=== PATIENT | female | born 1990 | race American Indian/Alaskan Native ===

== ENCOUNTER 2020-03-30 21:18 | Inpatient (IN) | payer MEDICAID ==
--- NOTE | 2020-03-30 22:36 | PCM.LDHP ---
L&D History of Present Illness - General Date of Service: 03/30/20 Admit Problem/Dx: Admission Diagnosis/Problem Admission Diagnosis/Problem Source of Information: Patient History Limitations: Reports: No Limitations - History of Present Illness Introduction:: 03/30/20 29 yo is here with consistent contractions that started today around 5-6 pm. She has a history of 2 previous sections, both in which she went into labor around 37 weeks with. Today she is 38 1/7 weeks gestation. FHT's have good variability and accelerations. Contractions are every 1-3 min and strong. SVE 2/90/-1. Timing/Duration: Reports: minutes: (1-3) Location, : Reports: Abdomen Quality: Reports: Sharp Severity: Moderate Improves with: Reports: None Worsens with: Reports: None Associated Symptoms: Denies: vaginal bleeding, vaginal fluid - Related Data Allergies/Adverse Reactions: Allergies Allergy/AdvReac Type Severity Reaction Status Date / Time ibuprofen [From Motrin] Allergy Nausea and Verified 03/25/20 12:03 Vomiting Home Medications: Home Meds Pnv No.95/Ferrous Fum/Folic AC [ Vitamin Tablet] 1 tab PO DAILY 03/25/20 [History] busPIRone [Buspar] 1 tab PO TID 03/25/20 [History] hydrOXYzine HCL [hydrOXYzine] 25 mg PO TID PRN 03/25/20 [History] metroNIDAZOLE [Flagyl] 500 mg PO Q12H #14 tab 03/25/20 [Rx] Past Medical History - Past Health History Medical/Surgical History: Denies 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: : 3 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: 2 LMP (Approximate): Social & Family History - Family History Family Medical History: No Pertinent Family History - Tobacco Use Used Tobacco, but Quit: No Second Hand Smoke Exposure: No - Caffeine Use Caffeine Use: Reports: Energy Drinks, Soda - Recreational Drug Use Recreational Drug Use: No H&P Review of Systems - Review of Systems: Review Of Systems: See Below General: Reports: No Symptoms HEENT: Reports: No Symptoms Pulmonary: Reports: No Symptoms Cardiovascular: Reports: No Symptoms Gastrointestinal: Reports: No Symptoms Genitourinary: Reports: No Symptoms Musculoskeletal: Reports: No Symptoms Skin: Reports: No Symptoms Psychiatric: Reports: No Symptoms Neurological: Reports: No Symptoms Hematologic/Lymphatic: Reports: No Symptoms Immunologic: Reports: No Symptoms L&D Exam - Exam Exam: See Below - Vital Signs Vital Signs: Last Vital Signs Temp 36.4 C 03/30/20 21:38 Pulse 89 03/30/20 21:38 Resp 20 03/30/20 21:38 BP 129/97 H 03/30/20 21:38 Pulse Ox 98 03/30/20 21:38 Weight: 65.317 kg - OB Specific Contraction Duration (sec): 40-60 Contraction Frequency (min): 2-3 Contraction Intensity: Moderate Movement: Active Heart Tones: Present Heart Tones per Min: 150 Heart Rate (FHR) Variability: Moderate (6-25 bmp) Presentation: Vertex - Exam General: Alert, Oriented HEENT: PERRLA, Hearing Intact, Mucosa Moist & [place], Nares Patent, Posterior Pharynx Clear, Pupils Equal, Pupils Reactive Neck: Supple, Trachea Midline Lungs: Clear to Auscultation, Normal Respiratory Effort Cardiovascular: Regular Rate, Regular Rhythm GI/Abdominal Exam: Normal Bowel Sounds, Soft, Non-Tender, No Distention, Pelvis Stable Rectal Exam: Normal Exam, Normal Rectal Tone Genitourinary: Normal external exam, Normal bimanual exam, Cervical dilitation, Enlarged uterus. No: Vaginal bleeding Back Exam: Normal Inspection, Full Range of Motion Extremities: Normal Inspection, Normal Range of Motion, Non-Tender, No Pedal Edema, Normal Capillary Refill Skin: Warm, Dry, Intact Neurological: Cranial Nerves Intact, Reflexes Equal Bilateral Psychiatric: Alert, Normal Affect, Normal Mood - Patient Data Lab Results Last 24 hrs: Laboratory Results - last 24 hr 03/30/20 03/30/20 03/30/20 Range/Units 21:30 21:31 21:42 Urine Color Yellow (YELLOW) Urine Appearance Clear (CLEAR) Urine pH 7.0 (5.0-8.0) Ur Specific [place] 1.020 (1.008-1.030) Urine Protein Negative (NEGATIVE) mg/dL Urine Glucose (UA) Negative (NEGATIVE) mg/dL Urine Ketones Negative (NEGATIVE) mg/dL Urine Occult Blood Negative (NEGATIVE) Urine Nitrite Negative (NEGATIVE) Urine Bilirubin Negative (NEGATIVE) Urine Urobilinogen 0.2 (0.2-1.0) EU/dL Ur Leukocyte Esterase Negative (NEGATIVE) Urine RBC Not seen (0-5) Urine WBC Not seen (0-5) Ur Epithelial Cells Few Urine Bacteria Not seen Urine Opiates Screen Negative (NEGATIVE) Ur Oxycodone Screen Negative (NEGATIVE) Urine Methadone Screen Negative (NEGATIVE) Ur Propoxyphene Screen Negative (NEGATIVE) Ur Barbiturates Screen Negative (NEGATIVE) Ur Tricyclics Screen Negative (NEGATIVE) Ur Phencyclidine Scrn Negative (NEGATIVE) Ur Amphetamine Screen Negative (NEGATIVE) U Methamphetamines Scrn Negative (NEGATIVE) Urine MDMA Screen Negative (NEGATIVE) U Benzodiazepines Scrn Negative (NEGATIVE) U Cocaine Metab Screen Negative (NEGATIVE) U Marijuana (THC) Screen Negative (NEGATIVE) SARS CoV-2 RNA Rapid KENZIE Negative - Problem List (1) Term SNOMED Code(s): 71207979 ICD Code: Z34.90 - ENCNTR FOR SUPRVSN OF NORMAL , UNSP, UNSP TRIMESTER Status: Acute Current Visit: Yes (2) History of 2 sections SNOMED Code(s): 561346595 ICD Code: Z98.891 - HISTORY OF UTERINE SCAR FROM PREVIOUS SURGERY Status: Acute Current Visit: Yes Problem List Initiated/Reviewed/Updated: Yes Orders Last 24hrs: Active Orders 24 hr Category Date Time Status OB Check [OM.PC] Click to Edit Care 03/30/20 21:25 Ordered CBC WITH AUTO DIFF [HEME] Routine Lab 03/30/20 22:28 Ordered TYPE AND SCREEN [BBK] Routine Lab 03/30/20 22:28 Ordered Assessment/Plan Comment:: 03/30/20 29 yo at 38 1/7 weeks in early labor Was scheduled for repeat section on 04/08/20, history of 2 previous sections, the first for swollen cervix and the second was repeat Uneventful , no complications SVE Plan: Labs ordered, IV placed Rapid COVID done Surgery called for non-urgent repeat section due to labor
[2020-03-30] MEDS ORDERED: Oxytocin 10 Units/1 ML SDV ONE ×2 (22:44→22:50)
[2020-03-30] MEDS ORDERED: Ondansetron 4 MG/2 ML SDV ONE (22:44)
[2020-03-30] MEDS ORDERED: Phenylephrine 1% 10 MG/ML SDV ONE (22:44)
[2020-03-30] MEDS ORDERED: ePHEDrine 50 MG/ML SDV ONE (22:45)
[2020-03-30] MEDS ORDERED: Sodium Chloride 0.9% 30 ML ONE (22:45)
[2020-03-30] MEDS ORDERED: cefOXitin 2 GM Vial ONE (22:46)
[2020-03-30] MEDS ORDERED: cefOXitin 1 GM Vial ONE (22:50)
[2020-03-31] MEDS ORDERED: diphenhydrAMINE 50 MG/ML SDV ONE (00:18)
[2020-03-31] MEDS ORDERED: diphenhydrAMINE 50 MG/ML SDV IVPUSH PRN (00:39)
[2020-03-31] MEDS ORDERED: Lanolin 100% Cream 40 GM Tube TOP PRN (00:39)
[2020-03-31] MEDS ORDERED: Witch Hazel Medicated Pads 100/Jar TOP PRN (00:39)
[2020-03-31] MEDS ORDERED: Naloxone 0.4 MG/ML SDV IVPUSH PRN ×2 (00:39→00:53)
[2020-03-31] MEDS ORDERED: Ondansetron 4 MG/2 ML SDV IVPUSH PRN ×2 (00:42→00:49)
[2020-03-31] MEDS ORDERED: hydrOXYzine HCL 100 MG/2 ML SDV IM PRN (00:42)
[2020-03-31] MEDS ORDERED: HYDROmorphone/Normal Saline 15 MG/30 ML PCA IV PRN (00:44)
[2020-03-31] MEDS ORDERED: Lactated Ringers 1,000 ML IV SCH (00:45)
[2020-03-31] MEDS ORDERED: Metoclopramide 10 MG/2 ML SDV IVPUSH PRN (00:50)
[2020-03-31] MEDS ORDERED: Labetalol 20 MG/4 ML Syringe IVPUSH PRN (00:51)
[2020-03-31] MEDS ORDERED: Meperidine PF 25 MG/ML Syringe IVPUSH PRN (00:51)
[2020-03-31] MEDS ORDERED: Atropine 0.1 MG/ML 10 ML Syringe IVPUSH PRN (00:54)
[2020-03-31] MEDS ORDERED: Naloxone 0.4 MG/ML SDV IV PRN (01:00)
[2020-03-31] MEDS: Acetaminophen 500 MG Tab PO SCH ×4 (01:27→18:56)
[2020-03-31] MEDS: Metoclopramide 10 MG/2 ML SDV IV SCH ×4 (01:34→18:19)
[2020-03-31] MEDS: cefOXitin 2 GM in Sodium Chloride 0.9% 50 ML IV SCH ×4 (05:27→23:40)
[2020-03-31] MEDS ORDERED: Dextrose 5%-Lactated Ringers 1,000 ML IV SCH ×2 (06:30→08:00)
[2020-03-31] MEDS: Docusate Sodium 100 MG Cap PO SCH ×2 (09:42→20:09)
[2020-03-31] MEDS: Bisacodyl 5 MG Tab PO SCH ×2 (09:43→20:09)
[2020-03-31] MEDS: oxyCODONE 5 MG Tab PO PRN ×3 (11:10→20:09)
[2020-03-31] MEDS ORDERED: Metoclopramide 10 MG/2 ML SDV IV PRN (20:02)
[2020-04-01] MEDS: Acetaminophen 500 MG Tab PO SCH ×4 (00:22→20:44)
[2020-04-01] MEDS: oxyCODONE 5 MG Tab PO PRN ×5 (00:22→21:31)
[2020-04-01] MEDS: cefOXitin 2 GM in Sodium Chloride 0.9% 50 ML IV SCH (05:51)
--- NOTE | 2020-04-01 08:11 | PN ---
DATE OF SERVICE: 04/01/2020 SUBJECTIVE: Mandi is postoperative day 2 following a section. She reports her pain is controlled. Vital signs are stable. Oral intake 2790. Urine output 1150. REVIEW OF SYSTEMS: Remainder of the review of systems negative for any pertinent positives or negatives. OBJECTIVE: GENERAL: Mandi Negro is a pleasant 29-year-old female. She is alert and orientated. Currently holding baby. VITAL SIGNS: TPR 98, 62, 16, and blood pressure 145/93. HEENT: Negative. NECK: Supple. HEART: Regular rate and rhythm. LUNGS: Clear. ABDOMEN: Incision is glued. EXTREMITIES: Without peripheral edema. ASSESSMENT: Term with history of previous section, repeat section, date 03/30/2020. Surgeon: Francisco Javier Ang MD. PLAN: 1. Discontinue and IV fluids. 2. We will evaluate p.r.n. or in the a.m. Diane George PA-C /[id number]
[2020-04-01] MEDS: Bisacodyl 5 MG Tab PO SCH ×2 (08:51→20:44)
[2020-04-01] MEDS: Docusate Sodium 100 MG Cap PO SCH ×2 (08:51→20:44)
[2020-04-02] MEDS: Acetaminophen 500 MG Tab PO SCH ×2 (00:51→08:35)
[2020-04-02] MEDS: oxyCODONE 5 MG Tab PO PRN ×2 (05:03→10:12)
[2020-04-02] MEDS ORDERED: Calcium Carbonate 500 MG Tab.Chew PO PRN (05:26)
[2020-04-02] MEDS: Bisacodyl 5 MG Tab PO SCH (08:36)
[2020-04-02] MEDS: Docusate Sodium 100 MG Cap PO SCH (08:36)
[2020-04-02] MEDS ORDERED: Magnesium Hydroxide 400 MG/5 ML Susp 30 ML Cup PO ONE (09:00)
--- NOTE | 2020-04-02 11:53 | PN ---
DATE OF SERVICE: 03/31/2020 The patient has been afebrile with stable vital signs, status post a section last night. The patient along with the Tylenol. She is allergic to ibuprofen. We will advance to regular diet today. Humphrey catheter will come out and she will be getting some bowel stimulation by switching over to oral pain medication tomorrow. Francisco Javier Ang MD /[id number]
--- NOTE | 2020-04-02 13:05 | DISCH ---
DIAGNOSES: 1. Term , 38 weeks. 2. History of 2 previous sections. DISCHARGE DIAGNOSES: Term with history of previous section, repeat section. Date of procedure, 03/30/2020. Surgeon: Francisco Javier Ang MD. HISTORY: Mandi is a pleasant 29-year-old female who has had 2 prior section. She presented to the hospital at 38 weeks. After preoperative evaluation and discussion of possible risks and possible complications, she wished to proceed with surgical procedure. HOSPITAL COURSE: Mandi had her section with delivery of a viable male on 03/30/2020. She had no operative complications. On postoperative day #1, her IV was decreased. She was started on oral pain medication and regular diet. On postoperative day #2, the cefoxitin was discontinued and IV fluids were discontinued. She was up ambulating. Pain was controlled. Oral intake adequate. Mandi reports being discouraged, problems with baby's father, fussy baby, and the baby is not nursing the way she would like him to. Referral has been made to Er[facility] Project Manager per nursing staff. Mandi is able to be discharged to home without any complications. PHYSICAL EXAMINATION: VITAL SIGNS: Height 5 feet 1 inch, weight is 144 pounds. TPR is 98.3, 81, 18. Blood pressure 146/88. HEENT: Negative. NECK: Supple. HEART: Regular rate and rhythm. LUNGS: Clear. ABDOMEN: Glued incision looks good. EXTREMITIES: Without peripheral edema. DISPOSITION: Discharged to home. CONDITION: Stable and improving. FOLLOWUP: Appointment with Diane George PA-C, on 04/09/2020 at 10 a.m. Appointment will be made with instrumentation engineer per their recommendations. HOME MEDICATIONS: Oxycodone 5 mg p.o. q.6 hours p.r.n. pain, #28; Tylenol 1000 mg q.6 hours, #100; to resume BuSpar 1 tablet p.o. t.i.d. 10 mg; hydroxyzine 25 mg t.i.d. p.r.n.; vitamins 1 daily; sertraline 25 mg p.o. daily. To finish out the Flagyl 500 every 12 hours if indicated, and she was sent home with lanolin cream and Tucks to use as directed. DIET: Regular diet. Drink 8 to 10 glasses of water a day. ACTIVITY: As tolerated. No lifting more than 10 pounds and baby and car seat. DRIVING: Do not drive for 1 week and within 6 hours of taking pain medication. SHOWER/BATHING: May shower. No tub bathing or swimming for 6 weeks. Keep operative site clean and dry. Notify provider if any fever, increased pain, swelling, redness, drainage, nausea, or vomiting. Use incentive spirometer 10 times every hour while awake. /[id number]
--- NOTE | 2020-04-03 14:19 | OR ---
DATE OF PROCEDURE: 03/31/2020 SURGEON: Francisco Javier Ang MD PREOPERATIVE DIAGNOSIS: Term , in labor with history of previous section. POSTOPERATIVE DIAGNOSIS: Term , in labor with history of previous section. OPERATIVE PROCEDURE: Repeat section ([id number]). ANESTHESIA: Spinal. INDICATIONS FOR PROCEDURE: The patient presents with third with history of previous section and is in active labor. She is scheduled to have a repeat section in about week and a half. Plan is to proceed with at this time. Potential risks including bleeding, infection, injury to mother and her baby were reviewed, and the patient wishes to proceed. DETAILS OF PROCEDURE: The patient was taken to the operating room and placed in a supine position. After spinal anesthetic was placed, a roll was placed underneath the right hip and Humphrey catheter inserted, and the abdomen prepped and draped. Previous Pfannenstiel incision was then reused and carried down through the skin and subcutaneous tissue and through the anterior rectus sheath. Subrectus sheath flaps were then raised superiorly and inferiorly and the midline peritoneum was divided. Peritoneal reflection of the bladder on the uterus was then divided and reflected downward. A transverse uterine incision was then made and viable male was delivered through vertex presentation. The cord was clamped and cut. Routine care given off the field per Caryl Plummer CNM. The patient was given IV and intrauterine oxytocin and IV cefoxitin. Good uterine contractions were noted. The placenta and membranes were delivered without difficulty. The uterus was then closed with 2 layers of 2-0 Vicryl stitch as was the peritoneal reflection of the bladder on the uterus. The midline peritoneum was then approximated along with the musculature with a #2 Vicryl stitch as was the anterior rectus sheath and the subcutaneous tissue approximated with 2 layers of 3-0 and 4-0 Vicryl stitch deep and the skin with 4-0 Vicryl subcuticular stitch and surgical glue applied. The patient was taken to the recovery room in satisfactory condition. Per ACOG guidelines, nurse direct entry midwife, Caryl Plummer was indicated for assisting in this case as those guidelines recommend a for a section. Francisco Javier Ang MD /[id number]
== END 2020-04-02 10:20 | disposition home or self-care (01) | DRG 786 ==
LOC: JP.OBCHECK 21:18 → JP.OB 22:29 → OBSVTOIN 23:46 → JP.MS 23:57
PROVIDERS: ADMIT Advanced Practice Midwife; ATTEND Surgery
PROC: 10D00Z1 Extraction of Products of Conception, Low, Open Approach (ICD-10-PCS; principal; 2020-03-30)
DX: O34.211 Maternal care for low transverse scar from previous cesarean delivery (principal); O41.1230 Chorioamnionitis, third trimester, not applicable or unspecified; Z37.0 Single live birth; Z3A.38 38 weeks gestation of pregnancy; Z20.828 Contact with and (suspected) exposure to other viral communicable diseases; Z87.891 Personal history of nicotine dependence
CPT/HCPCS: 36415; 59409; 80305-QW; 81001; 85027; 86850; 86900; 86901; 88307; 99211; A9270-GY; J0694; J1170; J1200; J2370; J2405; J2590; J2765; J7050; J7121; U0002